=== PATIENT | male | born 1955 | race Caucasian/White ===

== ENCOUNTER → 2016-09-18 08:30 | Day surgery (SDC) | payer OTHER ==
[~2016-09-18 08:30] MED LIST: Buffered Lidocaine 1% SYR 3ML* 3 ML/SYR SYRINGE INTRADERM ONE; Buffered Lidocaine 1% SYR 3ML* 3 ML/SYR SYRINGE ONE; Bupivacaine 0.25% EPI 200,000* 30 ML SDV ONE; Bupivacaine 0.25% SDV* 30 ML ONE; Dexamethasone IV* 4 MG/ML 1 ML (4 MG) IV SLOW PU ONE; Dexamethasone IV* 4 MG/ML 1 ML (4 MG) ONE; EPHEDrine (Pressors)* 50 MG/ML VIAL ONE; Famotidine IV* 10 MG/ML 2 ML (20 mg) IV ONE; Famotidine IV* 10 MG/ML 2 ML (20 mg) ONE; Lidocaine 2% MPF* 2 ML VIAL ONE; Metoprolol Tartrate IV* 1 MG/ML 5 ML VIAL ONE; Midazolam* 1 MG/ML 5 ML VIAL (5 MG) ONE; Ondansetron INJ* 2 MG/ML VIAL ONE; PROCHLORPERAZINE INJ 5 MG/ML 2 ML VIAL IV PRN; Phenylephrine IV* 40 MCG/ML 10 ML SYRINGE ONE; Propofol* 10 MG/ML 20 ML BTL IV PUSH ONE; Succinylcholine* 20 MG/ML 10 ML VIAL ONE; ceFAZolin 2 GM PREMIX (*) 2 GM/50 ML BAG IVPB ONE; fentaNYL* 50 MCG/ML 2 ML VIAL (100 MCG VIAL) IV PRN; fentaNYL* 50 MCG/ML 2 ML VIAL (100 MCG VIAL) ONE; oxyCODONE/Acetamin 5/325 MG* TAB PO PRN
[2016-09-18 16:34] VITALS: BP 122/79
--- NOTE | 2016-09-18 21:45 | OP ---
DATE OF OPERATION: 09/18/16 [facility] DATE OF : 53 SURGEON: Devin Barreto MD PRODUCE CLERK: MARIE Dowell. An pediatric physical therapy assistant was needed for the entirety of the case to help with positioning, retraction, and closure. ANESTHESIOLOGIST: Dr. Mcclure. ANESTHESIA: General. 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 OPERATIVE PROCEDURE: Open left distal clavicle excision. COMPLICATIONS: None. ESTIMATED BLOOD LOSS: Less than 25 cc. SPECIMENS: None. INDICATIONS: Cristofer Nogueira is a 60-year-old male who has a chronic history of an AC separation that has recently begun bothering him with cross body motion as well as lifting. This is all specific to where the AC joint is. He was aware that he was going to get arthritis. X-rays confirmed the diagnosis. He has elected to proceed with open distal clavicle excision. Risks and benefits were discussed at length and include but are not limited to bleeding, infection , damage to nerves, vessels and surrounding structures, wound not healing, persistent pain, need for further surgery and risks of anesthesia; he has elected to proceed. DESCRIPTION OF PROCEDURE: The patient was greeted in the preoperative area by the attending surgeon. Correct extremity was marked and consent was confirmed. The patient was brought back to the operating suite where he was placed in supine position on the operating table. He then underwent general anesthesia and LMA intubation, which she tolerated without difficulty. The left shoulder was prepped and draped in the usual sterile fashion with chlorhexidine scrub and alcohol wipe and final prep with ChloraPrep. After appropriate surgical pause, indicating site, side, procedure, and administration of antibiotics, an incision centered over the end of the clavicle over the AC joint was then made in line with the clavicle. Soft tissues were carefully dissected, which exposed the obvious deformity. The AC joint capsule had been attenuated again due to the previous deformity. Bovie was used to expose the distal end of the clavicle anteriorly and posteriorly and then the soft tissue dissection was then done to allow for Hohmann retractor to be placed. Approximately the last 1 cm of the clavicle was then measured and intraoperatively incised using the sagittal saw. The wound was palpated. There was a small loose body that was present on x-ray in the joint, which was then palpated for and then carefully removed with the rongeur and electrocautery device. Once all loose debris was removed, the shoulder was taken through range of motion with my finger in between the clavicle and the acromion to make sure that there was no pinching or further rubbing at the ends of the bone. At this point, the wound was copiously irrigated. The AC joint and then the fascia was closed with 0 Vicryl in an interrupted fashion, the subcutaneous tissue with 2-0 Vicryl and the skin with 3-0 nylon. The wound was then injected with 30 cc of 0.25% Marcaine. Sterile dressings were applied. He was placed in a regular sling. He was awoken from anesthesia and transferred to PACU in stable condition. POSTOPERATIVE PLAN: He will be discharged with pain medication and antibiotics. He will be allowed to do range of motion as tolerated. He can wean out of the sling as tolerated but he should not be lifting, pushing, pulling for at least 4 weeks. DVT prophylaxis is considered but deferred due to no previous personal or family history. I will see the patient back in 10 to 14 days. [id number]/[facility] #: [id number] REBECCA
== END | disposition home or self-care (01) ==
LOC: OR 08:30
PROVIDERS: ATTEND Orthopaedic Surgery
DX: M19.112 Post-traumatic osteoarthritis, left shoulder (principal); M24.812 Other specific joint derangements of left shoulder, not elsewhere classified; I25.9 Chronic ischemic heart disease, unspecified; J44.9 Chronic obstructive pulmonary disease, unspecified; E11.9 Type 2 diabetes mellitus without complications; E66.9 Obesity, unspecified
CPT/HCPCS: J0330; J0690; J1100; J2250; J2405; J2704; J3010; J3490

== ENCOUNTER 2018-12-04 06:21 | Emergency (ER) | payer OTHER ==
--- OUTSIDE RECORDS SUMMARY | 2018-12-04 06:31 | XMS REPORT | Continuity of Care Document ---
:1955 External Reference #:[id number] Author Name Estrada Malik, OD Address [address] [place] [address] Care Team Providers Name Role Phone Ludivina De Santiago MD Care Team Information Log Hauler Unavailable Ludivina De Santiago MD Primary Care Physician Unavailable Payers Date Identification Numbers Payment Provider Subscriber Policy Number: [id number] [facility] Cristofer Nogueira PayID: [id number] [address] [address] [place] [address] Advance Directives Description No Information Available Problems Date Description Provider Status Onset: 12/13/2016 Open-angle glaucoma - borderline Estrada Malik, OD Active Onset: 06/14/2016 Excess skin of eyelid Estrada Malik, OD Active Onset: 01/13/2016 Combined form of senile cataract Estrada Bolton O.D. Active Onset: 07/17/2015 Type 2 diabetes mellitus Estrada Bolton O.D. Active Onset: 10/31/2014 Retinal drusen Nandini Carlson O.D. Active Onset: 10/31/2014 Open angle with borderline findings Nandini Carlson O.D. 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 Active Onset: 10/31/2014 Presbyopia Nandini Carlson O.D. Active Onset: 10/31/2014 Disorder of eye with type 2 diabetes Nandini Carlson O.D. Active mellitus Family History Date Family Member(s) Observation Comments General Cataract General High BP General Heart Disease General Brother Father Heart Disease Father High BP Mother Diabetes Social History Type Date Description Comments Sex Unknown ETOH Use Occasionally consumes alcohol Tobacco Use Start: Unknown End: Unknown Patient is a former smoker Smoking Status Reviewed: 11/26/18 Patient is a former smoker Allergies, Adverse Reactions, Alerts Date Description Reaction Status Severity Comments 10/31/2014 Tetracycline Active 08/26/2018 Shrimp Active Medications Medication Date Status Form Strength Qnty SIG Indications Ordering Provider Latanoprost Active Solution 0.005% 7.5ml 1 drops Estrada 018 both Malik, OD eyes every night Omeprazole Active Capsules DR Delatorre 015 Nasreen Carlson Aspir-[address] 81mg once Unknown 000 per day by mouth Loratadine Active Tablets 10mg Unknown 000 Losartan Active Tablets 50mg Unknown Potassium 000 Isosorbide Active Tablets ER Unknown Mononitrate ER 000 24HR Metoprolol Active Tablets 25mg Unknown Tartrate 000 Atorvastatin Active Tablets 80mg Unknown Calcium 000 Metformin HCL Active Tablets 1000mg Unknown 000 Auvi-Q Active Solution 0.3mg/0.3M Unknown 000 Auto-Inject L Latanoprost Hx Solution 0.005% 7.5uni 1 drops Estrada 018 - ts both Malik, OD eyes 018 every night Metformin HCL Hx Tablets 500mg Unknown 000 - 015 Immunizations Description No Information Available Vital Signs Date Vital Result Comment 08/26/2018 3:08pm Intraocular Pressure Right Eye 14 mmHg Intraocular Pressure Left Eye 14 mmHg 07/01/2018 3:19pm Intraocular Pressure Right Eye 17 mmHg Intraocular Pressure Left Eye 17 mmHg 12/29/2017 1:38pm Intraocular Pressure Right Eye 17 mmHg Intraocular Pressure Left Eye 17 mmHg 08/28/2017 9:10am Intraocular Pressure Right Eye 15 mmHg Intraocular Pressure Left Eye 15 mmHg 12/13/2016 2:45pm Intraocular Pressure Right Eye 18 mmHg Intraocular Pressure Left Eye 19 mmHg 06/14/2016 8:39am Intraocular Pressure Right Eye 17 mmHg Intraocular Pressure Left Eye 16 mmHg 01/13/2016 10:46am Intraocular Pressure Right Eye 18 mmHg Intraocular Pressure Left Eye 18 mmHg 12/14/2014 11:32am Intraocular Pressure Right Eye 15 mmHg Intraocular Pressure Left Eye 15 mmHg Cornea Thickness Left Eye 646407 m Cornea Thickness Right Eye 312341 m Pachymetry adjusted IOP Right Eye +1 Pachymetry adjusted IOP Left Eye +2 10/31/2014 2:37pm Intraocular Pressure Right Eye 18 mmHg Intraocular Pressure Left Eye 18 mmHg Results Description No Information Available Procedures Date Code Description Status 07/01/2018 19488 Oct, Optic Nerve Completed 07/01/2018 56236 Visual Field Exam Extended, Unilateral Or Bilateral Completed 07/01/2018 29217 Eye Exam Est Intermediate Completed 12/29/2017 96240 Fundus Photography W/Interpretation & Report Completed 12/29/2017 03103 Ophthalmoscopy Subsequent Completed 12/29/2017 02894 Refraction Completed 12/29/2017 58112 Eye Exam Est Comprehensive Completed 08/28/2017 38827 Eye Exam Est Intermediate Completed 08/28/2017 19789 Visual Field Exam Extended, Unilateral Or Bilateral Completed 08/28/2017 66299 Oct, Optic Nerve Completed 12/13/2016 70732 Fundus Photography W/Interpretation & Report Completed 12/13/2016 75094 Ophthalmoscopy Subsequent Completed 12/13/2016 70095 Refraction Completed 12/13/2016 94316 Eye Exam Est Comprehensive Completed 06/14/2016 46406 Visual Field Exam Extended, Unilateral Or Bilateral Completed 06/14/2016 21997 Eye Exam Est Intermediate Completed 05/14/2016 48103 Visual Field Exam Extended, Unilateral Or Bilateral Completed 05/14/2016 89344 Visual Field Exam Extended, Unilateral Or Bilateral Completed 05/14/2016 50485 Oct, Optic Nerve Completed 05/14/2016 46350 Oct, Optic Nerve Completed 01/13/2016 94086 Fundus Photography W/Interpretation & Report Completed 01/13/2016 44869 Eye Exam Est Comprehensive Completed 03/15/2015 74655 Oct Retina Completed 03/15/2015 96146 Visual Field Exam Extended, Unilateral Or Bilateral Completed 03/15/2015 65096 Eye Exam Est Intermediate Completed 12/14/2014 03724 Oct, Optic Nerve Completed 12/14/2014 31556 Visual Field Exam Extended, Unilateral Or Bilateral Completed 12/14/2014 90285 Eye Exam Est Intermediate Completed 12/14/2014 70709 Corneal Pachymetry, Unilateral/Bilateral Completed 10/31/2014 51958 Fundus Photography W/Interpretation & Report Completed 10/31/2014 19743 Ophthalmoscopy Initial Completed 10/31/2014 37616 Refraction Completed 10/31/2014 39164 Eye Exam New Comprehensive Completed Encounters Type Date Location Provider Dx Diagnosis Office Visit 08/26/2018 Main Office Estrada Malik, OD H40.1131 Primary open-angle 3:15p glaucoma, bilateral, mild stage Office Visit 07/17/2015 Main Office Estrada Bolton, E11.9 Type 2 diabetes 10:00a O.D. mellitus without complications Plan of Treatment 11/26/2018 - Estrada Malik, ODH40.1131 Primary open-angle glaucoma, bilateral, mild stageFollow up:3 mos full, sooner PRN
--- OUTSIDE RECORDS SUMMARY | 2018-12-04 06:32 | XMS REPORT | Continuity of Care Document ---
:1955 External Reference #:[id number] Author Name BERNADETTE Laura Address [address] [place] [address] Care Team Providers Name Role Phone Ludivina De Santiago M.D. Care Team Information Maintenance Mechanic Technician Unavailable Ludivina De Santiago M.D. Primary Care Physician Unavailable Payers Date Identification Numbers Payment Provider Subscriber Effective: 2018 Policy Number: [id number] [facility] Cristofer Nogueira PayID: [id number] [address] [address] [place] [address] Advance Directives Description No Information Available Problems Date Description Provider Status Onset: 10/16/2018 Allergic rhinitis Milla Lemos M.D. Active Onset: 10/16/2018 Ingestion dermatitis due to food Milla Lemos M.D. Active Family History Date Family Member(s) Observation Comments General Diabetes General Heart Disease General Hypertension Mother Diabetes First Brother Diabetes First Brother Heart Disease has 8 brothers all have heart disease. First Brother Hypertension all 8 brothers have hypertension. 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 Home Environment Has central air Home Environment Stairs are not present Home Environment Cotton Comforter Home Environment Elevator is present Home Environment Mattress is 6 years old Home Environment Mattress is not encased in an allergy proof case Home Environment Pillows are not encased in an allergy proof case Home Environment Pillows are rubber (foam) Home Environment Does not use a dehumidifier Home Environment There are no draperies in the home Home Environment The home is candido Home Environment The floors are carpeted Home Environment Uses forced air heating Home Environment Uses natural gas heating Home Environment [place] Home Environment Water Source: [facility] Smoke-Free Home is smoke-free Pets None Occupation Retired ETOH Use Occasionally consumes alcohol Tobacco Use Start: Unknown End: Patient is a former smoker Unknown Recreational Drug Use Denies Drug Use Allergies, Adverse Reactions, Alerts Date Description Reaction Status Severity Comments 10/16/2018 Tetracycline Active Medications Medication Date Status Form Strength Qnty SIG Indications Ordering Provider Auvi-Q 10/16/ Active Solution 0.3mg/0.3M 2units use as Milla 2018 Auto-Injec L directed. bj Lemos M.D. Multi Vitamin / Active Tablets once a day Unknown Daily 0000 Aspirin 81 Low / Active Chewtabs 81mg 1 per day Unknown Dose 0000 Loratadine / Active Capsules 10mg take one Unknown 0000 10 mg tab daily Losartan / Active Tablets 50mg Unknown Potassium 0000 Dexilant / Active Capsules 60mg Unknown 0000 DR Isosorbide / Active Tablets ER 120mg Unknown Mononitrate ER 0000 24HR Metoprolol / Active Tablets 25mg Unknown Tartrate 0000 Atorvastatin / Active Tablets 80mg Unknown Calcium 0000 Metformin HCL / Active Tablets 1000mg Unknown 0000 Fluoxetine HCL / Active Capsules 10mg Unknown 0000 Epinephrine / Active Solution 0.3mg/0.3M use as Unknown 0000 Auto-Injec L directed - t mylan generic only [facility]# [id number] -02 Immunizations CPT Code Status Date Vaccine Lot # [id number] Given Unknown Influenza Vaccine Vital Signs Date Vital Result Comment 11/06/2018 1:43pm Height 72 inches 6'0" Weight 254.00 lb Weight 115.214 kg Respiratory Rate 20 /min Heart Rate 55 /min O2 % BldC Oximetry 97 % BP Systolic 102 mmHg BP Diastolic 55 mmHg BMI (Body Mass Index) 34.4 kg/m2 10/16/2018 8:43am Height 72 inches 6'0" Weight 256.00 lb Weight 116.122 kg Respiratory Rate 21 /min Heart Rate 71 /min O2 % BldC Oximetry 96 % BP Systolic 108 mmHg BP Diastolic 61 mmHg BMI (Body Mass Index) 34.7 kg/m2 Results Test Date Facility Test Result H/L Range Note Allergy Shrimp Ige 10/16/2018 [facility] Shrimp Allergen 0.55 kU /L [address] [place] [address] [phone] Laboratory test 10/16/2018 [facility] Rast Lobster 0.60 kU/L 2 [place] [address] [phone] Allergy Crab F23 10/16/2018 [facility] Crab Allergen 0.49 kU/L 3 [place] [address] [phone] Laboratory test 10/16/2018 [facility] Rast Scallops <0.35 kU/L 4 [place] [address] [phone] Rast Blue Mussel <0.35 kU/L 5 Rast Clam <0.35 kU/L 6 Rast Oyster <0.35 kU/L 7 Dermatophagoides farinae IgE 0.36 kU/L 8 Dermatophagoides pteronyssinus <0.35 kU/L 9 Alternaria tenuis IgE Allergen <0.35 kU/L 10 Aspergillus Fumigatus IgE <0.35 kU/L 11 1 Class 1 (Equivocal 0.35-0.69) Test Performed by: [place] [address] 2 Class 1 (Equivocal 0.35-0.69) Test Performed by: [place] [address] 3 Class 1 (Equivocal 0.35-0.69) Test Performed by: [place] [address] 4 Class 0 (Negative <0.35) Test Performed by: [place] [address] 5 Class 0 (Negative <0.35) Test Performed by: [place] [address] 6 Class 0 (Negative <0.35) Test Performed by: [place] [address] 7 Class 0 (Negative <0.35) Test Performed by: [address] [place], [place] [address] 8 Class 1 (Equivocal 0.35-0.69) Test Performed by: [place] [address] 9 Class 0 (Negative <0.35) Test Performed by: [place] [address] 10 Class 0 (Negative <0.35) Test Performed by: [place] [address] 11 Class 0 (Negative <0.35) Test Performed by: [place] [address] Procedures Description No Information Available Encounters Type Date Location Provider Dx Diagnosis Office Visit 10/16/2018 [place] Milla Lemos, L27.2 Dermatitis due to 9:00a M.D. ingested food J30.9 Allergic rhinitis, unspecified Plan of Treatment Future Appointment(s):11/12/2018 2:30 pm - Allergy Testing at [facility]11/12/2018 3:00 pm - JOHANNA Laura-C at [facility]0311/06/2018 - JOHANNA Laura- CL27.2 Dermatitis due to ingested foodJ30.9 Allergic rhinitis, norolfotpjaA50.013 Allergy to seafoodRecommendations:Refrain from wearing perfumes/scented colognes while visiting our office. Continue all medications as prescribed NEEDS TO RESCHEDULED Continue strict avoidance of shrimp, lobster and crab . If accidental ingestion occurs, refer to Emergency Action Plan for treatment. Reviewed EAP, patient is comfortable and understands current plan. Taught and reviewed about the use of an Epi Pen, and patient demonstrated and verbalized understanding. EMERGENCY ACTION PLAN: For systemic reactions: -Administer: EpiPen Jr 0.15 mg/EpiPen 0.3 mg IM to thigh muscle Auvi-Q 0.15 mg/AuviQ Q 0.3 mg IM to thigh muscle -May repeat the dose in 15-20 minutes if there is incomplete response to the first dose, or if symptoms get worse over time. -Call 911 for safe transport to an emergency facility. For mild reactions or suspected ingestion without symptoms: - Administer: Liquid Benadryl 12.5 mg/5 ml, tsp immediately and every 4-6 hours as needed. Do not give Benadryl if there is any difficulty swallowing, breathing or talking. Administer EpiPen instead.
--- OUTSIDE RECORDS SUMMARY | 2018-12-04 06:32 | XMS REPORT | Continuity of Care Document ---
:1955 External Reference #:[id number] Author Name BERNADETTE Laura Address [address] [place] [address] Care Team Providers Name Role Phone Ludivina De Santiago M.D. Care Team Information Ward Secretary Unavailable Ludivina De Santiago M.D. 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 Home Environment Has central air Home Environment [...] in the city Home Environment Water Source: [facility] Smoke-Free Home is smoke-free Pets None Occupation Retired ETOH Use Occasionally consumes alcohol Tobacco Use Start: Unknown End: Patient is a former smoker Unknown Recreational Drug Use Denies Drug Use Allergies, Adverse Reactions, Alerts Date Description Reaction Status Severity Comments 10/16/2018 Tetracycline Active Medications Medication Date Status Form Strength Qnty SIG Indications Ordering Provider Auvi-Q 10/16/ Active Solution 0.3mg/0.3M 2units use as [facility] 2018 Auto-Injec L directed. bj Lemos M.D. [...] L directed - t mylan generic only [facility]# [id number] -02 Immunizations CPT Code Status Date Vaccine Lot # [id number] Given Unknown Influenza Vaccine Vital Signs Date Vital Result Comment 11/12/2018 1:12pm Height 72 inches 6'0" Weight 256.00 lb Weight 116.122 kg Respiratory Rate 18 /min Heart Rate 72 /min O2 % BldC Oximetry 95 % BP Systolic 114 mmHg BP Diastolic 73 mmHg BMI (Body Mass Index) 34.7 kg/m2 11/06/2018 1:43pm Height 72 inches 6'0" Weight [...] H/L Range Note Allergy Shrimp Ige 10/16/2018 [facility] Shrimp Allergen 0.55 kU /L 1 [facility] [place] [address] [phone] Laboratory test 10/16/2018 [facility] Rast Lobster 0.60 kU/L [address] [place] [address] [phone] Allergy Crab F23 10/16/2018 [facility] Crab Allergen 0.49 kU/L 3 [place] [address] [phone] Laboratory test 10/16/2018 [facility] Rast Scallops <0.35 kU/L [address] [place] [address] [phone] Rast Blue Mussel <0.35 kU/L 5 Rast Clam <0.35 kU/L 6 Rast Oyster <0.35 kU/L 7 Dermatophagoides farinae IgE 0.36 kU/L 8 Dermatophagoides pteronyssinus <0.35 kU/L 9 Alternaria tenuis IgE Allergen <0.35 kU/L 10 Aspergillus Fumigatus IgE <0.35 kU/L 11 1 Class 1 (Equivocal 0.35-0.69) Test Performed by: [facility] [place] [address] 2 Class 1 (Equivocal 0.35-0.69) Test Performed by: [facility] [place] [address] 3 Class 1 (Equivocal 0.35-0.69) Test Performed by: [facility] [place] [address] 4 Class 0 (Negative <0.35) Test Performed by: [place] [address] 5 Class 0 (Negative <0.35) Test Performed by: [place] [address] 6 Class 0 (Negative <0.35) Test Performed by: [place] [address] 7 Class 0 (Negative <0.35) Test Performed by: [place] [address] 8 Class 1 (Equivocal 0.35-0.69) Test Performed by: [place] [address] 9 Class 0 (Negative <0.35) Test Performed by: [place] [address] 10 Class 0 (Negative <0.35) Test Performed by: [place] [address] 11 Class 0 (Negative <0.35) Test Performed by: [place] [address] Procedures Date Code Description Status 11/12/2018 93852 Skin Test Scratch # Of Units ____ Completed Encounters Type Date Location Provider Dx Diagnosis Office Visit 11/12/2018 Rubén Holder, L27.2 Dermatitis due to 3:00p MANAGER WOUND-C ingested food J30.9 Allergic rhinitis, unspecified Z91.013 Allergy to seafood Office Visit 10/16/2018 9:00a Rubén Lemos, L27.2 Dermatitis due to M.D. ingested food J30.9 Allergic rhinitis, unspecified Plan of Treatment 11/12/2018 - JOHANNA Laura-CL27.2 Dermatitis due to ingested foodJ30.9 Allergic rhinitis, jqfpsrvuuqbL56.013 Allergy to seafoodRecommendations:Refrain from wearing perfumes/scented colognes while visiting our office. Continue all medications as prescribed. He is able to eat clams, oysters and scallops. Continue strict avoidance of shrimp, lobster and [...] in 15-20 minutes if there is incomplete responseto the first dose, or if symptoms get worse over time. -Call 911 for safe transport to an emergency facility. For mild reactions or suspected ingestion without symptoms : -Administer: Liquid Benadryl 12.5 mg/5 ml, tsp immediately and every 4-6 hours as needed. Do not give Benadryl if there is any difficulty swallowing, breathing or talking. Administer EpiPen instead.
[2018-12-04] MEDS ORDERED: NS 0.9% 1000 ML** 1,000 ML IV ONE (06:47)
[2018-12-04] MEDS ORDERED: Ondansetron INJ* 2 MG/ML VIAL IV ONE (06:47)
--- NOTE | 2018-12-04 06:48 | ED ---
Abdominal Pain/Male - HPI Summary HPI Summary: Pt. is a 63 y.o male who presents to the ER for numerous complaints that started last night. Pt. resides at home with his . Pt. states he developed cough, sinus pressure, SOB, as well as upper abd. pain that started yesterday. In the ER pt. denies CP or SOB. He notes nausea and dry heaves. Denies diarrhea , urinary sxs, fever/chills. Past hx of CAD, ?COPD, HTN, HLD, GERD, chronic sinusitis. Sxs are moderate in severity. No current modifying factors. - History of Current Complaint Chief Complaint: EDGeneral Stated Complaint: "SOB" PER EMS Time Seen by Provider: 12/04/18 06:31 Hx Obtained From: Patient Pain Intensity: 4 - Allergies/Home Medications Allergies/Adverse Reactions: Allergies Allergy/AdvReac Type Severity Reaction Status Date / Time celecoxib [From Celebrex] Allergy Difficulty Verified 12/04/18 06:59 Breathing niacin Allergy Difficulty Verified 12/04/18 06:59 [From Niaspan Breathing/Wheezing Extended-Release] shellfish derived Allergy Anaphylatic Verified 12/04/18 06:58 Shock Tetracyclines Allergy Unknown Verified 12/04/18 07:00 Reaction Details PMH/Surg Hx/FS Hx/Imm Hx Previously Healthy: Yes Endocrine/Hematology History: Reports: Hx Diabetes Cardiovascular History: Reports: Hx Coronary Artery Disease, Hx Hypercholesterolemia, Hx Hypertension, Other Cardiovascular Problems/Disorders - cardiac stents x4 05,07 Respiratory History: Reports: Hx Chronic Obstructive Pulmonary Disease (COPD), Hx Seasonal Allergies, Hx Sleep Apnea GI History: Reports: Hx Gastroesophageal Reflux Disease Musculoskeletal History: Reports: Hx Arthritis, Hx Orthopedic Injury - left shoulder injury, Other Musculoskeletal History - Chronic Neck Pain Sensory History: Denies: Hx Contacts or Glasses, Hx Hearing Aid Opthamlomology History: Denies: Hx Contacts or Glasses Psychiatric History: Reports: Hx Depression - Surgical History Surgery Procedure, Year, and Place: 3 Cardiac Stents 2004. 1 Cardiac Stent 2006. Septoplasty Turbinate Reduction. Hyoid Suspension. Appendectomy Hx Anesthesia Reactions: No Infectious Disease History: No Infectious Disease History: Denies: Traveled Outside the [place] in Last 30 Days - Family History Known Family History: Positive: Non-Contributory - Social History Occupation: Retired Lives: With Family Alcohol Use: Daily Substance Use Type: Reports: None Smoking Status (MU): Former Smoker Review of Systems Constitutional: Negative Negative: Fever, Chills Eyes: Negative Positive: Other - sinus congestion Cardiovascular: Negative Negative: Palpitations, Chest Pain Positive: Shortness Of Breath, Cough Positive: Abdominal Pain, Nausea. Negative: Vomiting, Diarrhea Genitourinary: Negative Negative: flank pain, hematuria Musculoskeletal: Negative Skin: Negative Neurological: Negative All Other Systems Reviewed And Are Negative: Yes Physical Exam Triage Information Reviewed: Yes Vital Signs On Initial Exam: Initial Vitals Temp Pulse Resp BP Pulse Ox 98.4 F 88 16 141/79 93 12/04/18 06:25 12/04/18 06:25 12/04/18 06:25 12/04/18 06:25 12/04/18 06:25 Vital Signs Reviewed: Yes Appearance: Positive: Well-Appearing - Pt. sitting up in bed in NAD. Breathing easily on RA. present. Skin: Positive: Warm, Dry Head/Face: Positive: Normal Head/Face Inspection Eyes: Positive: Normal, EOMI Neck: Positive: Supple, Nontender. Negative: Nuchal Rigidity Respiratory/Lung Sounds: Positive: Clear to Auscultation, Breath Sounds Present. Negative: Rales, Rhonchi, Wheezes Cardiovascular: Positive: Normal, RRR Abdomen Description: Positive: Other: - Obese, distended. RUQ pain with positive [place] sign. Musculoskeletal: Positive: Normal, Strength/ROM Intact. Negative: Edema Left, Edema Right Neurological: Positive: Normal, CN Intact II-III Psychiatric: Positive: Affect/Mood Appropriate Diagnostics - Vital Signs Vital Signs Temp Pulse Resp BP Pulse Ox 12/04/18 06:28 81 20 141/79 94 12/04/18 06:27 83 19 96 12/04/18 06:25 98.4 F 88 16 141/79 93 - Laboratory Result Diagrams: 12/04/18 07:04 12/04/18 07:04 Lab Statement: Any lab studies that have been ordered have been reviewed, and results considered in the medical decision making process. Abdominal Pain Male Course/Dx - Course Course Of Treatment: Pt. presenting with complaints of SOB that has resolved, RUQ pain, and sinus congestion. He is afebrile and well appearing. O2 saturation in low 90's. Workup ordered. Labs are unremarkable. CXR negative for acute findings. Abd. xray shows gas without obstruction. GB U/S shows fatty liver without acute findings. Readings per radiology. On re-exam pt. still c/o pain. Abd. was re-examined and pain is now markedly tender to RLQ with guarding. Will obtain CT to r/o further etiology. CT scan is negative for significant findings per radiology. Ct does show marked constipation. Suspect may be etiology of pain. Results discussed. Advised to increase fluids and fiber in diet. Can use OTC stool softeners. Close f.u with PCP and return to ER if sxs change or worsen. ECG done at 0630 shows a sinus rhythm of 81bpm, left axis deviation, no ST elevation or depression. - Diagnoses Differential Diagnosis/HQI/PQRI: ACS, AMI, Appendicitis, Bowel Obstruction, Constipation, Diverticulitis, Gall Bladder Disease, Hepatitis, Pancreatitis, Urinary Tract Infection Provider Diagnoses: Abdominal pain, Constipation Discharge - Sign-Out/Discharge Documenting (check all that apply): Patient Departure Patient Received Moderate/Deep Sedation with Procedure: No - Discharge Plan Condition: Good Disposition: HOME Patient Education Materials: Abdominal Pain (ED) Referrals: Ludivina De Santiago MD [Primary Care Provider] - Additional Instructions: Schedule a close follow up appointment with your PCP Return to ER if symptoms change or worsen - Billing Disposition and Condition Condition: GOOD Disposition: Home
[2018-12-04 07:22] LABS: ABS Basophils 0 10^3/ul (0-0.2); ABS Eosinophils 0.2 10^3/ul (0-0.6); ABS Lymphocytes 1.1 10^3/ul (1.0-4.8); ABS Monocytes 0.4 10^3/ul (0-0.8); ABS Neutrophils 3.8 10^3/ul (1.5-7.7); ABS Nucleated RBC 0 10^3/ul; Hematocrit 41 % (36-46); Hemoglobin 14.1 g/dL (14.0-18.0); Lymphocyte % 20.3 %; Mean Corpuscular HGB Conc 34 g/dL (31-36); Mean Corpuscular Hemoglobin 32 pg (27-31); Mean Corpuscular Volume 94 fL (80-94); Mean Platelet Volume 8.9 fL (7.4-10.4); Nucleated Red Blood Cells % 0.1; Platelet Count 159 10^3/uL (150-450); Red Blood Count 4.41 10^6 /uL (4.18-5.48); Red Cell Distribution Width 13 % (10.5-15); White Blood Count 5.5 10^3/uL (3.5-10.8)
[2018-12-04 07:34] LABS: ALT 24 U/L (7-52); AST 28 U/L (13-39); Albumin 4.4 g/dL (3.2-5.2); Albumin/Globulin Ratio 1.8 (1-3); Alkaline Phosphatase 44 U/L (34-104); Anion Gap 8 mmol/L (2-11); BUN/Creatinine Ratio 11.7 (8-20); Blood Urea Nitrogen 11 mg/dL (6-24); C Reactive Protein < 1.00 mg/L (<8.01); CO2 Carbon Dioxide 25 mmol/L (22-32); Calcium 9.6 mg/dL (8.6-10.3); Chloride 102 mmol/L (101-111); EGFR African American 97.8 (>60); EGFR Non-African American 80.8 (>60); Globulin 2.4 g/dL (2-4); Glucose 100 mg/dL (70-100); Magnesium 1.5 mg/dL (1.9-2.7); Potassium 4.8 mmol/L (3.5-5.0); Sodium 135 mmol/L (135-145); Total Protein 6.8 g/dL (6.4-8.9)
[2018-12-04 07:34] LABS: Urine Appearance Clear; Urine Bilirubin Negative (Negative); Urine Blood Negative (Negative); Urine Color Straw; Urine Glucose Negative (Negative); Urine Ketones Negative (Negative); Urine Nitrite Negative (Negative); Urine Protein Negative (Negative); Urine Specific Gravity 1.006 (1.010-1.030); Urine Urobilinogen Negative (Negative)
[2018-12-04] MEDS ORDERED: Magnesium Oxide TAB* 400 MG PO ONE (08:34)
[2018-12-04 10:57] VITALS: BP 138/82
== END 2018-12-04 10:55 | disposition home or self-care (01) ==
LOC: ED 06:21
DX: R10.11 Right upper quadrant pain (principal); K59.00 Constipation, unspecified; E11.9 Type 2 diabetes mellitus without complications; I25.10 Atherosclerotic heart disease of native coronary artery without angina pectoris; E78.00 Pure hypercholesterolemia, unspecified; I10 Essential (primary) hypertension; J44.9 Chronic obstructive pulmonary disease, unspecified; K21.9 Gastro-esophageal reflux disease without esophagitis; Z87.891 Personal history of nicotine dependence; J32.9 Chronic sinusitis, unspecified; K76.0 Fatty (change of) liver, not elsewhere classified
CPT/HCPCS: 36415; 71045; 74018; 74176; 76705; 80053; 81003; 83605; 83690; 83735; 84484; 85025; 85379; 86140; 93005; 96361; 96374; 96375; 99282; J2405

== ENCOUNTER 2019-04-05 10:33 | Emergency (ER) | payer OTHER ==
[2019-04-05] MEDS ORDERED: predniSONE TAB* 10 MG PO ONE (11:36)
[2019-04-05] MEDS ORDERED: Albuterol 2.5 MG/3 ML NEB.SOL* (0.083%) INH ONE (11:36)
[2019-04-05] MEDS ORDERED: Lidocaine 2% VISCOUS* 15 ML UDC PO ONE (11:37)
[2019-04-05] MEDS ORDERED: Ketorolac INJ* 30 MG/ML 1 ML VIAL IV PUSH ONE (11:37)
--- NOTE | 2019-04-05 11:43 | ED ---
Respiratory - HPI Summary HPI Summary: The patient is a 63 y/o M presenting to [facility] accompanied by with a chief complaint of respiratory symptoms for the last three days. He reports that when the symptoms began, he started with a nonproductive cough, sore throat, rhinorrhea, and myalgia with body aches and joint pains. While he hasnt had any measured fevers, he notes he has been more diaphoretic at night than usual. He also has been experiencing CP secondary to coughing, which also aggravates the sore throat. He notes that he has had cramping in his legs for the last few months intermittently as well. At its worse, the pain is rated 9/10 in severity , specially with the throat pain. He denies any chills, erythema of eyes, SOB, abdominal pain, N/V, dysuria, hematuria, edema, rash, or dizziness. He uses a CPAP at home. No hx of asthma. PMHx: DM (Metformin), CAD, HLD, HTN, 4 cardiac stents, COPD. Former smoker, daily EtOH, no substance use. - History of Current Complaint Chief Complaint: EDGeneral Stated Complaint: COUGH/BODY ACHES PER PT Time Seen by Provider: 04/05/19 11:27 Hx Obtained From: Patient Onset/Duration: Gradual Onset, Lasting Days - three, Still Present Timing: Constant Initial Severity: Mild Current Severity: Moderate Pain Intensity: 9 Character: Cough (Nonproductive) Sputum Amount: None Aggravating Factor(s): Other - coughing aggravates chest pain Alleviating Factor(s): Nothing Associated Signs and Symptoms: Chest Pain with Cough, Diaphoresis - Allergy/Home Medications Allergies/Adverse Reactions: Allergies Allergy/AdvReac Type Severity Reaction Status Date / Time celecoxib [From Celebrex] Allergy Difficulty Verified 04/05/19 10:38 Breathing niacin Allergy Difficulty Verified 04/05/19 10:38 [From Niaspan Breathing/Wheezing Extended-Release] shellfish derived Allergy Anaphylatic Verified 04/05/19 10:38 Shock Tetracyclines Allergy Unknown Verified 04/05/19 10:38 Reaction Details Home Medications: Home Medications Atorvastatin* [Lipitor 80 MG*] 80 mg PO QPM 04/05/19 [History Confirmed 04/05/19 ] Loratadine 10 mg PO DAILY 04/05/19 [History Confirmed 04/05/19] Losartan Potassium [Cozaar] 50 mg PO DAILY 04/05/19 [History Confirmed 04/05/19] Metoprolol Tartrate TAB* [Lopressor TAB*] 12.5 mg PO BID 04/05/19 [History Confirmed 04/05/19] Naproxen Sodium [Aleve] 220 mg PO BID PRN 04/05/19 [History Confirmed 04/05/19] metFORMIN* [Glucophage 500 MG TAB *] 500 mg PO DAILY 04/05/19 [History Confirmed 04/05/19] PMH/Surg Hx/FS Hx/Imm Hx Endocrine/Hematology History: Reports: Hx Diabetes Cardiovascular History: Reports: Hx Coronary Artery Disease, Hx Hypercholesterolemia, Hx Hypertension, Other Cardiovascular Problems/Disorders - cardiac stents x4 , Respiratory History: Reports: Hx Chronic Obstructive Pulmonary Disease (COPD), Hx Sleep Apnea GI History: Reports: Hx Gastroesophageal Reflux Disease Musculoskeletal History: Reports: Hx Arthritis, Hx Orthopedic Injury - left shoulder injury, Other Musculoskeletal History - Chronic Neck Pain Sensory History: Denies: Hx Contacts or Glasses, Hx Hearing Aid Opthamlomology History: Denies: Hx Contacts or Glasses Psychiatric History: Reports: Hx Depression - Surgical History Surgical History: Yes Surgery Procedure, Year, and Place: 3 Cardiac Stents 2004. 1 Cardiac Stent 2006. Septoplasty Turbinate Reduction. Hyoid Suspension. Appendectomy Hx Anesthesia Reactions: No Infectious Disease History: No Infectious Disease History: Denies: Traveled Outside the [place] in Last 30 Days - Family History Known Family History: Positive: Hypertension, Diabetes - Social History Alcohol Use: Daily Hx Substance Use: No Substance Use Type: Reports: None Hx Tobacco Use: Yes Smoking Status (MU): Former Smoker Review of Systems Positive: Skin Diaphoresis. Negative: Fever, Chills Negative: Erythema Positive: Sore Throat, Nasal Discharge Positive: Chest Pain - secondary to cough Positive: Cough - nonproductive. Negative: Shortness Of Breath Negative: Abdominal Pain, Vomiting, Nausea Negative: dysuria, hematuria Positive: Myalgia - joint pain, body aches, cramping in BLE, Edema Negative: Rash Neurological: Other - NEGATIVE: dizziness All Other Systems Reviewed And Are Negative: Yes Physical Exam - Summary Physical Exam Summary: Constitutional: Well-developed, Well-nourished, Alert. (-) Distressed Skin: Warm, Dry HENT: Normocephalic; Atraumatic; Pharynx is normal appearing Eyes: Conjunctiva normal Neck: Musculoskeletal ROM normal neck. (-) JVD, (-) Stridor, (-) Tracheal deviation Cardio: Rhythm regular, rate normal, Heart sounds normal; Intact distal pulses; The pedal pulses are 2+ and symmetric. Radial pulses are 2+ and symmetric. (-) Murmur Pulmonary/Chest wall: Incessantly coughing during the exam. Effort normal. (-) Respiratory distress, (-) Wheezes, (-) Rales Abd: Soft, (-) tenderness, (-) Distension, (-) Guarding, (-) Rebound Musculoskeletal: (-) Edema Lymph: (-) Cervical adenopathy Neuro: Alert, Oriented x3 Psych: Mood and affect Normal Triage Information Reviewed: Yes Vital Signs On Initial Exam: Initial Vitals Temp Pulse Resp BP Pulse Ox 97.5 F 75 18 131/80 94 04/05/19 10:35 04/05/19 10:35 04/05/19 10:35 04/05/19 10:35 04/05/19 10:35 Vital Signs Reviewed: Yes Diagnostics - Vital Signs Vital Signs Temp Pulse Resp BP Pulse Ox 04/05/19 11:23 78 120/80 94 04/05/19 11:22 74 95 04/05/19 10:35 97.5 F 75 18 131/80 94 - Laboratory Result Diagrams: 04/05/19 11:50 04/05/19 11:50 Lab Statement: Any lab studies that have been ordered have been reviewed, and results considered in the medical decision making process. - Radiology CXR Radiology Interpretation Completed By: Radiologist Summary of Radiographic Findings: Impression: No evidence for acute disease. ED physician has reviewed this report. - EKG 1158 Cardiac Rate: NL - 69 bpm EKG Rhythm: Sinus Rhythm Summary of EKG Findings: NSR at 69 bpm. No STEMI. Re-Evaluation - Re-Evaluation First Eval Re-Evaluation Time: 13:15 Comment: We discussed results and discharge plan. Disposition - Course Course Of Treatment: Patient is a 63 y/o M accompanied by with cc of respiratory symptoms including nonproductive cough, sore throat, rhinorrhea, and myalgia with body aches and joint pains starting three days ago, and leg cramping intermittently over the past few months. Additionally c/o diaphoresis and CP with cough. Denies chills, SOB. Hx of cardiac stents, COPD. Former smoker. Upon physical exam, the patient is incessantly coughing and has a normal appearing pharynx. Blood work reveals RBCs of 4.15, hgb of 13.6, Hct of 39, MCH of 33, plt count of 135, abs lymphs of 0.7, glucose of 112, and magnesium of 1.7. EKG at 1158 reveals NSR at 69 bpm without ischemic changes. Chest x-ray impression is negative for acute disease. In the ED course, the patient was administered GI cocktail for throat pain, Toradol, Prednisone, and Albuterol. He is discharged with dx of sore throat and URI with rx for Albuterol inhaler, Codeine/Guaifenesin, Doxycycline, Lidocaine, and Prednisone. He will follow up with PCP in 2-3 days. Patient agrees with this plan. - Diagnoses Provider Diagnoses: URI (upper respiratory infection), Sore throat Discharge ED - Sign-Out/Discharge Documenting (check all that apply): Patient Departure - Patient will be discharged home. Patient Received Moderate/Deep Sedation with Procedure: No - Discharge Plan Condition: Stable Disposition: HOME Prescriptions: Albuterol HFA INHALER* [Ventolin HFA Inhaler*] 2 puff INH Q4H PRN #1 mdi PRN Reason: Cough Codeine Phosphate/Guaifenesin [Codeine-Guaifen 10-100 mg/5 ml] 5 ml PO TID PRN # 60 ml MDD 15 PRN Reason: Pain - Severe DOXYcycline CAP(*) [DOXYcycline 100MG CAP(*)] 100 mg PO BID #14 cap Lidocaine 2% VISCOUS* [Xylocaine 2% Viscous*] 10 ml SWISH SPIT Q4H PRN #1 btl PRN Reason: Sore Throat predniSONE TAB* [Deltasone 20 MG TAB*] 20 mg PO DAILY #5 tab Patient Education Materials: Upper Respiratory Infection (DC) Referrals: Ludivina De Santiago MD [Primary Care Provider] - 2 Days Additional Instructions: Please take medication as prescribed. Follow up with your primary care provider in 2-3 days. RETURN TO THE EMERGENCY DEPARTMENT FOR ANY NEW OR WORSENING SYMPTOMS. - Billing Disposition and Condition Condition: STABLE Disposition: Home - Attestation Statements Document Initiated by Scribe: Yes Documenting Scribe: Anayeli Arias Provider For Whom Samanthaibjeremías is Documenting (Include Credential): Dr. Clinton Low MD Scribe Attestation: I, samantha Dossibed for Dr. Clinton Low MD on 04/20/19 at 1419. Scribe Documentation Reviewed: Yes Provider Attestation: The documentation as recorded by the Anayeli capellan accurately reflects the service I personally performed and the decisions made by me, Dr. Clinton Low MD Status of Scribe Document: Viewed
[2019-04-05 12:02] LABS: ABS Basophils 0.1 10^3/ul (0-0.2); ABS Eosinophils 0.3 10^3/ul (0-0.6); ABS Lymphocytes 0.7 10^3/ul (1.0-4.8); ABS Monocytes 0.6 10^3/ul (0-0.8); ABS Neutrophils 3.9 10^3/ul (1.5-7.7); Eosinophil % 4.5 %; Hematocrit 39 % (42-52); Hemoglobin 13.6 g/dL (14.0-18.0); Lymphocyte % 12.9 %; Mean Corpuscular HGB Conc 35 g/dL (31-36); Mean Corpuscular Hemoglobin 33 pg (27-31); Mean Corpuscular Volume 94 fL (80-94); Mean Platelet Volume 8.6 fL (7.4-10.4); Platelet Count 135 10^3/uL (150-450); Red Blood Count 4.15 10^6 /uL (4.18-5.48); Red Cell Distribution Width 13 % (10-15); White Blood Count 5.6 10^3/uL (3.5-10.8)
[2019-04-05 12:21] LABS: Albumin 4.5 g/dL (3.2-5.2); Albumin/Globulin Ratio 1.8 (1-3); Calcium 9.4 mg/dL (8.6-10.3); EGFR Non-African American 75.2 (>60); Globulin 2.5 g/dL (2-4); Magnesium 1.7 mg/dL (1.9-2.7); Potassium 4.9 mmol/L (3.5-5.0); Total Bilirubin 0.6 mg/dL (0.2-1.0)
[2019-04-05 12:56] LABS: TSH (Thyroid Stimulating Horm) 1.92 mcIU/mL (0.34-5.60)
[2019-04-05 13:03] VITALS: BP 103/64
== END 2019-04-05 13:20 | disposition home or self-care (01) ==
LOC: ED 10:33
DX: J06.9 Acute upper respiratory infection, unspecified (principal); J02.9 Acute pharyngitis, unspecified; F17.200 Nicotine dependence, unspecified, uncomplicated; E11.9 Type 2 diabetes mellitus without complications; Z79.84 Long term (current) use of oral hypoglycemic drugs; I25.10 Atherosclerotic heart disease of native coronary artery without angina pectoris; E78.00 Pure hypercholesterolemia, unspecified; I10 Essential (primary) hypertension; J44.9 Chronic obstructive pulmonary disease, unspecified; K21.9 Gastro-esophageal reflux disease without esophagitis
CPT/HCPCS: 36415; 71045; 80053; 83605; 83735; 84443; 84484; 85025; 93005; 96374; 99283; J1885; J7512

== ENCOUNTER 2019-07-08 10:38 | Emergency (ER) | payer OTHER ==
[2019-07-08] MEDS ORDERED: Ketorolac *IM* INJ* 60 MG/2 ML VIAL IM ONE (10:51)
--- NOTE | 2019-07-08 10:59 | ED ---
Lower Extremity - HPI Summary HPI Summary: This patient is a 63-year-old male with history of hypertension presenting to the ED with severe right knee pain. Sxs have been severe x 3 weeks. He denies any injury. He denies any difficulty with range of motion. Denies redness, bruising, swelling, weakness. He states symptoms are worse at night and when lying onto the right side. He is endorsing a dull ache and pain without radiation of pain into the upper or lower extremity otherwise. He states he was told to start physical therapy for this today through his doctor, Dr. De Santiago , PCP, however due to the amount of pain, he was unable to go. He has not been taking anything at home for relief of the symptoms. - History of Current Complaint Chief Complaint: EDExtremityLower Stated Complaint: RIGHT LEG PAIN Time Seen by Provider: 07/08/19 10:48 Hx Obtained From: Patient Mechanism Of Injury: Unknown Onset of Pain: Days Severity Initially: Moderate Severity Currently: Moderate Pain Intensity: 8 Pain Scale Used: 0-10 Numeric Timing: Constant Location: Is Discrete @ - right knee Character Of Pain: Aching, Throbbing Associated Signs And Symptoms: Negative: Swelling, Redness, Bruising - Risk Factors Gout Risk Factors: Negative DVT Risk Factors: Negative Septic Arthritis Risk Factor: Negative - Allergies/Home Medications Allergies/Adverse Reactions: Allergies Allergy/AdvReac Type Severity Reaction Status Date / Time celecoxib [From Celebrex] Allergy Difficulty Verified 07/08/19 10:44 Breathing niacin Allergy Difficulty Verified 07/08/19 10:44 [From Niaspan Breathing/Wheezing Extended-Release] shellfish derived Allergy Anaphylatic Verified 07/08/19 10:44 Shock Tetracyclines Allergy Unknown Verified 07/08/19 10:44 Reaction Details PMH/Surg Hx/FS Hx/Imm Hx Previously Healthy: Yes Endocrine/Hematology History: Reports: Hx Diabetes Cardiovascular History: Reports: Hx Coronary Artery Disease, Hx Hypercholesterolemia, Hx Hypertension, Other Cardiovascular Problems/Disorders - cardiac stents x4 , Respiratory History: Reports: Hx Chronic Obstructive Pulmonary Disease (COPD), Hx Sleep Apnea GI History: Reports: Hx Gastroesophageal Reflux Disease Musculoskeletal History: Reports: Hx Arthritis, Hx Orthopedic Injury - left shoulder injury, Other Musculoskeletal History - Chronic Neck Pain Sensory History: Denies: Hx Contacts or Glasses, Hx Hearing Aid Opthamlomology History: Denies: Hx Contacts or Glasses Psychiatric History: Reports: Hx Depression - Surgical History Surgery Procedure, Year, and Place: 3 Cardiac Stents 2004. 1 Cardiac Stent 2006. Septoplasty Turbinate Reduction. Hyoid Suspension. Appendectomy Hx Anesthesia Reactions: No - Immunization History Hx Pertussis Vaccination: No Immunizations Up to Date: Yes Infectious Disease History: No Infectious Disease History: Denies: Traveled Outside the [place] in Last 30 Days - Family History Known Family History: Positive: Hypertension, Diabetes - Social History Occupation: Employed Full-time Lives: With Family Alcohol Use: Daily Hx Substance Use: No Substance Use Type: Reports: None Hx Tobacco Use: Yes Smoking Status (MU): Former Smoker Review of Systems Negative: Fever, Chills, Fatigue, Skin Diaphoresis Negative: Palpitations, Chest Pain Negative: Shortness Of Breath, Cough Genitourinary: Negative Positive: no symptoms reported, see HPI Positive: Arthralgia Skin: Negative Neurological: Negative All Other Systems Reviewed And Are Negative: Yes Physical Exam Triage Information Reviewed: Yes Vital Signs On Initial Exam: Initial Vitals Temp Pulse Resp BP Pulse Ox 98.4 F 73 20 119/81 94 07/08/19 10:43 07/08/19 10:43 07/08/19 10:43 07/08/19 10:43 07/08/19 10:43 Vital Signs Reviewed: Yes Appearance: Positive: Well-Appearing, Well-Nourished Skin: Positive: Warm, Skin Color Reflects Adequate Perfusion Head/Face: Positive: Normal Head/Face Inspection Eyes: Positive: EOMI, SAKINA, Conjunctiva Clear Neck: Positive: Supple, No Lymphadenopathy Respiratory/Lung Sounds: Positive: Clear to Auscultation, Breath Sounds Present Cardiovascular: Positive: RRR, Pulses are Symmetrical in both Upper and Lower Extremities Musculoskeletal: Positive: Normal, Strength/ROM Intact. Negative: Edema Left, Edema Right Neurological: Positive: Sensory/Motor Intact, Alert, Oriented to Person Place, Time, Speech Normal Psychiatric: Positive: Affect/Mood Appropriate Procedures - Sedation Patient Received Moderate/Deep Sedation with Procedure: No Diagnostics - Vital Signs Vital Signs Temp Pulse Resp BP Pulse Ox 07/08/19 10:43 98.4 F 73 20 119/81 94 - Laboratory Lab Statement: Any lab studies that have been ordered have been reviewed, and results considered in the medical decision making process. Lower Extremity Course/Dx - Course Course Of Treatment: This patient is evaluated for right knee pain which is severe in nature. He states he feels a "clicking" sensation as well as severe pain. Patient remains ambulatory without numbness or tingling to the knee or lower extremity otherwise. He does not have follow up with ortho and does not take medications. He is to start PT today. X-ray obtained which was mild osteoarthritis with no other acute osseous injury. Patient will be given Toradol for relief of arthritis symptoms. He will follow up with orthopedic as well as his PCP for further evaluation and the need for PT. - Diagnoses Differential Diagnosis/HQI/PQRI: Positive: Sprain, Strain Provider Diagnoses: Osteoarthritis Discharge ED - Sign-Out/Discharge Documenting (check all that apply): Patient Departure - Discharge Plan Condition: Stable Disposition: HOME Prescriptions: Ketorolac TAB * [Toradol TAB *] 10 mg PO Q6H #16 tab Patient Education Materials: Arthritis (ED) Referrals: Ludivina De Santiago MD [Primary Care Provider] - Carol Marlow MD [Medical Doctor] - Additional Instructions: Toradol four times daily x 4 days for pain Ice and elevation for discomfort Call orthopedic physician for follow up Only do PT if your pain decreases in severity - Billing Disposition and Condition Condition: STABLE Disposition: Home - Attestation Statements Provider Attestation: pt seen by midlevel provider independently, based on their assessment, it was not necessary to present the case to me but I was available for consultation. I did not form a physician-patient relationship with the patient. The chart however, has been reviewed. am signing this note strictly in an administrative capacity.
--- OUTSIDE RECORDS SUMMARY | 2019-07-08 11:19 | XMS REPORT | Continuity of Care Document ---
:1955 External Reference #:[id number] Author Name Ludivina De Santiago M.D. (transmitted by agent of provider Brianda Naik) Address [address] [facility], [place] [address] Care Team Providers Name Role Phone Galen Berger MD - Otolaryngology Care Team Information Inside Horticultural Specialty Grower Ludivina De Santiago MD - Internal Care Team Information Inside Horticultural Specialty Grower Medicine Problems Active Problems Provider Date Hyperlipidemia Jamia Obando MD Onset: 05/09/2010 Coronary arteriosclerosis Jamia Obando MD Onset: 05/09/2010 Mild major depression, single episode Karma Gutierrez M.D. Onset: 2009 Gastroesophageal reflux disease Karam Gutierrez M.D. Onset: 05/09/2010 Benign essential hypertension Demetri Moreira M.D. Onset: 05/13/2011 Depressive disorder Demetri Moreira M.D. Onset: 08/12/2011 Cervical disc disorder Demetri Moreira M.D. Onset: 10/22/2011 Obstructive sleep apnea syndrome Demetri Moreira M.D. Onset: 06/03/2012 Chronic ischemic heart disease Brian Bryant M.D., [facility], Onset: 2013 FASNC Obesity Rasheeda Gonzalez MD Onset: 10/13/2014 Type 2 diabetes mellitus Ludivina De Santiago M.D. Onset: 10/10/2014 Tubular adenoma of colon Ludivina De Santiago M.D. Onset: 04/16/2016 Lumbar radiculopathy Piter Crane M.D. Onset: 06/24/2016 Localized, secondary osteoarthritis of Zaneb Yaseen, MD Onset: 08/22/2016 the shoulder region Localized, primary osteoarthritis of Devin Barreto MD Onset: 12/03/2016 the shoulder region Injury of shoulder region Devin Barreto MD Onset: 12/03/2016 Thoracic aortic ectasia Brian Bryant M.D., [facility], Onset: 09/09/2018 FASNC Social History Type Date Description Comments Sex Unknown Cigarette Use Quit 8 Years Ago ETOH Use Currently consumes a few per day, beer alcohol Tobacco Use Start: Unknown End: Patient is a former started at age 10 Unknown smoker stopped at age 50 Smoked 40 yrs; max 1ppd Recreational Drug Use Sporadically uses Marijuana Smoking Status Reviewed: 06/24/19 Patient is a former started at age 10 smoker stopped at age 50 Smoked 40 yrs; max 1ppd Exercise Type/Frequency Exercises regularly Exercise Type/Frequency Walk every day Allergies, Adverse Reactions, Alerts Active Allergies Reaction Severity Comments Date Niaspan 03/27/2009 Celebrex hot flashes, sweats, tightness 07/20/2009 in chest Shrimp Allergenic Extract 09/09/2018 Medications Active Medications SIG Qnty Indications Ordering Date Provider Shingrix intramuscular x 1 1units Ludivina 06/24/2019 then repeat 4 months Allan De Santiago 50mcg/0.5ML later Suspension Rec Aleve Twice Daily Unknown 04/05/2019 220mg Capsules Metformin HCL once a day 90tabs E11.9 Ludivina 03/11/2019 500mg Allan De Santiago Tablets Epinephrine subcutaneously as 2units T78.02xA Ludivina 09/10/2018 needed for Allan De Santiago 0.3mg/0.3ML anaphylaxis Solution (backordered, Auto-Inject 10/12/18) Freestyle Unistick twice daily and as 100units Ludivina 04/09/2018 II Lancets needed Allan De Santiago [facility] True Metrix Meter as needed 1units Ludivina 11/11/2017 Allan De Santiago Device True Metrix Self test blood sugars 100units Ludivina 11/11/2017 Monitoring Blood fasting and 2 hours Allan De Santiago Glucose Strips after meals 3 times a day Strips Fluoxetine HCL Take One Capsule By 90caps F32.89 [facility] 08/08/2016 10mg Mouth Once Daily Allan De Santiago Capsules Aspirin Ec Low Dose Take One Tablet By 90tabs [facility] 11/10/2014 Mouth Once Daily as Allan De Santiago 81mg Tablets DR Directed Dexilant take 1 capsule by 90caps K21.9 Ludivina 09/22/2014 60mg mouth once daily 1/[address] hour before breakfast Atorvastatin Take One Tablet By 90tabs [facility] 09/22/2014 Calcium Mouth Every Evening Allan De Santiago 80mg Tablets Loratadine Take One Tablet By 90tabs [facility] 05/16/2014 10mg Mouth Once Daily as Allan De Santiago Tablets Needed as Directed Nitrostat as needed for chest 30tabs Brian Ab 01/10/2014 0.4mg pain Allan Bryant, Tablets Sub [facility] [place] Metoprolol Tartrate Take 1/2 Tablet By 60tabs I10 [facility] 05/17/2013 Mouth Two Times Daily Allan De Santiago 25mg Tablets Isosorbide 1 tab by mouth every 90tabs Brian Ab Mononitrate ER day Allan Bryant, [facility] 120mg Tablets ER 24HR Losartan Potassium Take One Tablet By 90tabs Ludivina Mouth Once Daily Allan De Santiago 50mg Tablets History Medications Ventolin HFA Q4H 1units Unknown 04/05/2019 - 06/24/2019 108(90Base) mcg/Act Aerosol Doxycycline Hyclate Twice Daily 14caps Unknown 04/05/2019 - 04/12/2019 100mg Capsules Deltasone Every Day 5tabs Unknown 04/05/2019 - 06/24/2019 20mg Tablets Xylocaine Viscous Q4H 1units Unknown 04/05/2019 - 06/24/2019 2% Solution Cheratussin ac Three Times Daily 60units Unknown 04/05/2019 - 06/24/2019 100-10mg/5ML Syrup Medications Administered in Office Medication SIG Qnty Indications Ordering Provider Date Inj, Regadenoson, 0.1 MG Brian Bryant M.D., 09/09/2016 [facility] Technetium TC 99M Brian Bryant M.D., 09/09/2016 Tetrofosmin, Per Unit Dose FACC, FASNC Up To 40 Millicuries Injection Technetium TC 99M [facility] Schedule 09/04/2016 Tetrofosmin, Per Unit Dose Up To 40 Millicuries Injection Inj, Regadenoson, 0.1 MG Brian Bryant M.D., 03/18/2014 Injection FACC, FASNC Technetium TC 99M Brian Bryant M.D., 03/18/2014 Tetrofosmin, Per Unit Dose FACC, FASNC Up To 40 Millicuries Injection Immunizations CPT Code Status Date Vaccine Reaction Lot # [id number] Given 06/24/2019 Influenza Virus Vaccine, [id number] Quadrivalent ([id number]), Derived From Cell 66234 Given 07/09/2018 Pneumonia Vaccine [id number] 04287 Given 07/09/2018 Influenza Virus Vaccine, [id number] Quadrivalent, Split, Preservative Free 41722 Given 07/08/2017 Influenza Virus Vaccine, given in L [id number] Quadrivalent, Split, deltoid,max. Preservative Free well,site unremarkable,bandaid applied 90889 Given 08/08/2016 Influ Virus Vaccine, [id number] Quadrivalent, Split Virus, [place] [address] Given 08/08/2016 Pneumococcal Conjugate [id number] Vaccine 13 Valent For Intramuscular Use 90106 Given 07/03/2015 Tdap - [id number] Tetanus/Diptheria/Acellular Pertussis 57859 Given 07/03/2015 Influenza Virus Vaccine, [id number] Quadrivalent, Split, Preservative Free Q2037 Given 10/11/2013 Fluvirin Im 3Yrs And Older [id number] Q2038 Given 06/03/2012 Fluzone Vaccine [id number] 76379 Given 06/22/2011 Influenza Virus 3Yrs & Over [id number] 70231 Given 06/26/2010 Pneumonia Vaccine [id number] 68976 Given 06/26/2010 Influenza Virus 3Yrs & Over [id number] 81351 Given 07/05/2009 Influenza Virus Vaccine, [id number] Pandemic Formulation 11925 Given 07/05/2009 Administration Swine Flu Shot Vital Signs Date Vital Result Comment 06/24/2019 11:01am Height 71 inches 5'11" Weight 253.00 lb Heart Rate 65 /min BP Systolic 139 mmHg BP Diastolic 87 mmHg O2 % BldC Oximetry 95 % BMI (Body Mass Index) 35.3 kg/m2 04/08/2019 9:40am Height 71 inches 5'11" Weight 250.00 lb Heart Rate 61 /min BP Systolic Sitting 125 mmHg BP Diastolic Sitting 74 mmHg O2 % BldC Oximetry 96 % BMI (Body Mass Index) 34.9 kg/m2 Results Test Date Facility Test Result H/L Range Note Laboratory test 05/21/2019 [facility] Blue Mussel <0.35 kU/L [address] [place] [address] [phone] Clam Allergen IgE <0.35 kU/L 2 Crab Allergen IgE 0.73 kU/L 3 Lobster Allergen IgE 0.77 kU/L 4 Scallop Allergen IgE <0.35 kU/L 5 Shrimp Allergen IgE 0.91 kU/L 6 Oyster Allergen IgE <0.35 kU/L 7 Lipid Profile 04/08/2019 [facility] Triglycerides 156 mg/dL 8, 9 (Trig/Chol/HDL) [address] [place] [address] [phone] Cholesterol 168 mg/dL 10 HDL Cholesterol 39.6 mg/dL 11 LDL Cholesterol 97 mg/dL 12 Urine Microalbumin 04/08/2019 [facility] Ur Microalbumin < 15.[address] (mg/L) mg/[place] [address] [phone] Urine Creatinine 76.81 mg/dL Urine Microalbumin/Creatinine TNP <31 13 CBC Auto 04/05/2019 [facility] White Blood 5.6 10^3/uL Normal 3.5-10.[address] [place] [address] [phone] Red Blood Count 4.15 10^6/uL Low 4.18-5.48 Hemoglobin 13.6 g/dL Low 14.0-18.0 Hematocrit 39 % Low 42-52 Mean Corpuscular Volume 94 fL Normal 80-94 Mean Corpuscular Hemoglobin 33 pg High 27-31 Mean Corpuscular HGB Conc 35 g/dL Normal 31-36 Red Cell Distribution Width 13 % Normal 10-15 Platelet Count 135 10^3/uL Low 150-450 Mean Platelet Volume 8.6 fL Normal 7.4-10.4 Abs Neutrophils 3.9 10^3/uL Normal 1.5-7.7 Abs Lymphocytes 0.7 10^3/uL Low 1.0-4.8 Abs Monocytes 0.6 10^3/uL Normal 0-0.8 Abs Eosinophils 0.3 10^3/uL Normal 0-0.6 Abs Basophils 0.1 10^3/uL Normal 0-0.2 Abs Nucleated RBC 0.0 10^3/uL Granulocyte % 70.3 % Lymphocyte % 12.9 % Monocyte % 11.3 % Eosinophil % 4.5 % Basophil % 1.0 % Nucleated Red Blood Cells % 0.0 Laboratory test 04/05/2019 [facility] Lactic Acid 1.1 mmol/L Normal 0.5-2.0 14 finding [address] [place] [address] [phone] Comp Metabolic 04/05/2019 [facility] Sodium 137 mmol/L Normal 135-145 [address] [place] [address] [phone] Potassium 4.9 mmol/L Normal 3.5-5.0 Chloride 105 mmol/L Normal 101-111 Co2 Carbon Dioxide 26 mmol/L Normal 22-32 Anion Gap 6 mmol/L Normal 2-11 Glucose 112 mg/dL High 70-100 Blood Urea Nitrogen 18 mg/dL Normal 6-24 Creatinine 1.00 mg/dL Normal 0.67-1.17 BUN/Creatinine Ratio 18.0 Normal 8-20 Calcium 9.4 mg/dL Normal 8.6-10.3 Total Protein 7.0 g/dL Normal 6.4-8.9 Albumin 4.5 g/dL Normal 3.2-5.2 Globulin 2.5 g/dL Normal 2-4 Albumin/Globulin Ratio 1.8 Normal 1-3 Total Bilirubin 0.60 mg/dL Normal 0.2-1.0 Alkaline Phosphatase 56 U/L Normal 34-104 Alt 27 U/L Normal 7-52 Ast 23 U/L Normal 13-39 Egfr Non- 75.2 >60 Egfr 91.0 >60 15 Laboratory test 04/05/2019 [facility] Magnesium 1.7 mg/dL Low 1.9-2.7 finding [address] [place] [address] [phone] Troponin-I (TnI) 0.00 ng/mL <0.04 16 TSH (Thyroid Stim Horm) 1.92 mcIU/mL Normal 0.34-5.60 Laboratory test finding 03/11/2019 [facility] In House Hemoglobin A1c 5.3 5-7 1 Class 0 (Negative <0.35) Test Performed by: [place] [address] Laborer Pipelines: Cristobal Carrizales M.D. Ph.D.; CLIA# [id number] 2 Class 0 (Negative <0.35) Test Performed by: [place] [address] Laborer Pipelines: Cristobal Carrizales M.D. Ph.D.; CLIA# [id number] 3 Class 2 (Positive 0.70-3.49) Test Performed by: [place] [address] Laborer Pipelines: Cristobal Carrizales M.D. Ph.D.; CLIA# [id number] 4 Class 2 (Positive 0.70-3.49) Test Performed by: [place] [address] Laborer Pipelines: Cristobal Carrizales M.D. Ph.D.; CLIA# [id number] 5 Class 0 (Negative <0.35) Test Performed by: [place] [address] Laborer Pipelines: Cristobal Carrizales M.D. Ph.D.; CLIA# [id number] 6 Class 2 (Positive 0.70-3.49) Test Performed by: [place] [address] Laborer Pipelines: Cristobal Carrizales M.D. Ph.D.; CLIA# [id number] 7 Class 0 (Negative <0.35) Test Performed by: [place] [address] Laborer Pipelines: Cristobal Carrizales M.D. Ph.D.; CLIA# [id number] 8 FASTING 10 HOUR 9 Desirable: <150 Borderline High: 150-199 High: 200-499 Very High: >500 10 Desirable: <200 Borderline High: 200-239 High: >239 11 Low: <40 Desirable: 40-60 High: >60 12 Desirable: <100 Near Optimal: 100-129 Borderline High: 130-159 High: 160-189 Very High: >189 13 Unable to calculate due to low microalbumin 14 [facility] Severe Sepsis and Septic Shock Management Bundle Measure requires all lactic acids initially measuring >2.0 mmol/L be repeated. 15 Because ethnic data is not always readily available, this report includes an eGFR for both -Americans and non- Americans. The National Kidney Disease Education Program (NKDEP) does not endorse the use of the MDRD equation for patients that are not between the ages of 18 and 70, are , have extremes of body size, muscle mass, or nutritional status, or are non- or non-. According to the National Kidney Foundation, irrespective of diagnosis, the stage of the disease is based on the level of kidney function: Stage Description GFR(mL/min/1.73 m(2)) 1 Kidney damage with normal or decreased GFR 90 2 Kidney damage with mild decrease in GFR 60-89 3 Moderate decrease in GFR 30-59 4 Severe decrease in GFR 15-29 5 Kidney failure <15 (or dialysis) 16 Troponin-I testing on Plasma Separator Tubes (PST) has a known false positive rate of 0.20-0.40%. All positive troponins reflex immediately to secondary confirmatory testing. Using the [employer] DxI 800 Access Immunoassay systems, the 99th percentile upper reference limit was demonstrated to be < 0.03 ng/mL. Procedures Date Code Description Status 04/28/2019 734483304 Diabetic Retinal Eye Exam Completed 08/28/2017 [id number] Diabetic Retinal Eye Exam Completed 04/15/2016 [id number] Colonoscopy Completed 01/13/2016 [id number] Diabetic Retinal Eye Exam Completed 10/31/2014 [id number] Diabetic Retinal Eye Exam Completed 01/10/2011 [id number] Colonoscopy Completed Medical Devices Description No Information Available Encounters Type Date Location Provider Dx Diagnosis Office Visit 04/08/2019 [facility] Ludivina De Santiago, J40 Bronchitis, not 9:50a Medicine - Kevin Lemus specified as acute or chronic E78.5 Hyperlipidemia, unspecified Office Visit 03/11/2019 10:30a [facility] E11.9 Type 2 diabetes Medicine - Allan De Santiago mellitus without Ccmob complications R21 Rash and other nonspecific skin eruption Assessments Date Code Description Provider 06/24/2019 Z00.00 Encounter for general adult medical Ludivina De Santiago M.D. examination without abnormal findings 06/24/2019 Z23 Encounter for immunization Ludivina De Santiago M.D. 06/24/2019 M79.604 Pain in right leg Ludivina De Santiago M.D. 06/24/2019 L57.0 Actinic keratosis Ludivina De Santiago M.D. 06/24/2019 E11.9 Type 2 diabetes mellitus without Ludviina De Santiago M.D. complications 04/08/2019 J40 Bronchitis, not specified as acute or chronic Ludivina De Santiago M.D. 04/08/2019 E78.5 Hyperlipidemia, unspecified Ludivina De Santiago M.D. 03/11/2019 E11.9 Type 2 diabetes mellitus without Ludivina De Santiago M.D. complications 03/11/2019 R21 Rash and other nonspecific skin eruption Ludivina De Santiago M.D. Plan of Treatment Future Appointment(s):09/13/2019 10:30 am - Ludivina [facility] M.D. at [facility] Ludivina De Santiago M.D.Z00.00 Encounter for general adult medical examination without abnormal findingsComments:use of sun block daily to prevent for skin cancers you received the flu vaccine today, we discussed getting the shingrix kaplsghtwtyS48 Encounter for olaryldvnqfxA39.604 Pain in right legNew Therapy:Physical DlthcjhP95.0 Actinic keratosisReferral: Alistair Freguson MD, JaorcpugayeU48.9 Type 2 diabetes mellitus without complications Functional Status Description No Information Available Mental Status Description No Information Available Referrals Refer to Dr Reason for Referral Status Appt Date Alistair Ferguson MD Sent [address] [place] [phone] Alistair Ferguson MD Closed 03/19/[address] [place] [phone]
--- OUTSIDE RECORDS SUMMARY | 2019-07-08 11:19 | XMS REPORT | Continuity of Care Document ---
:1955 External Reference #:[id number] Author Name BERNADETTE Laura Address [address] [place] [address] Care Team Providers Name Role Phone Ludivina De Santiago M.D. Care Team Information Cardroom Supervisor [phone] Problems Active Problems Provider Date Allergic rhinitis Milla Lemos M.D. Onset: 10/16/2018 Ingestion dermatitis due to food Milla Lemos M.D. Onset: 10/16/2018 Social History Type Date Description Comments Sex Unknown ETOH Use Occasionally consumes alcohol Tobacco Use Start: Unknown End: Patient is a former smoker Unknown Recreational Drug Use Denies Drug Use Allergies, Adverse Reactions, Alerts Active Allergies Reaction Severity Comments Date Tetracycline 10/16/2018 Medications Active Medications SIG Qnty Indications Ordering Provider Date Auvi-Q use as directed. 2unoren Hoang 10/16/2018 0.3mg/0.3ML divya. Allan Lemos Solution Auto-Inject Multi Vitamin Daily once a day Unknown Tablets Aspirin 81 Low Dose 1 per day Unknown 81mg Chewtabs Loratadine take one 10 mg Unknown 10mg tab daily Capsules Losartan Potassium Unknown 50mg Tablets Dexilant Unknown 60mg Capsules DR Isosorbide Unknown Mononitrate ER 120mg Tablets ER 24HR Metoprolol Tartrate Unknown 25mg Tablets Atorvastatin Calcium Unknown 80mg Tablets Metformin HCL Unknown 500mg Tablets Fluoxetine HCL Unknown 10mg Capsules Epinephrine use as directed - Unknown 0.3mg/0.3ML mylan generic Solution Auto-Inject only [facility] [id number] Immunizations CPT Code Status Date Vaccine Lot # [id number] Given Unknown Influenza Vaccine Vital Signs Date Vital Result Comment 05/20/2019 1:28pm Height 72 inches 6'0" Weight 252.00 lb Weight 114.307 kg Respiratory Rate 20 /min Heart Rate 69 /min O2 % BldC Oximetry 96 % BP Systolic 105 mmHg BP Diastolic 68 mmHg BMI (Body Mass Index) 34.2 kg/m2 11/12/2018 1:12pm Height 72 inches 6'0" Weight 256.00 lb Weight 116.122 kg Respiratory Rate 18 /min Heart Rate 72 /min O2 % BldC Oximetry 95 % BP Systolic 114 mmHg BP Diastolic 73 mmHg BMI (Body Mass Index) 34.7 kg/m2 Results Description No Information Available Procedures Description No Information Available Medical Devices Description No Information Available Encounters Type Date Location Provider Dx Diagnosis Office Visit 05/20/2019 [facility] Mcmanus Encounter for 1:40p BERNADETTE immunization L27.2 Dermatitis due to ingested food 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 Continue all medications as prescribed Get the lab work done He is able to eat clams, oysters and scallops. Continue strictavoidance of shrimp, lobster and crab . If accidental ingestion occurs, refer to Emergency Action Plan for treatment. Reviewed EAP, patient is comfortable and understands current plan. Taught and reviewed about the use of an Epi Pen, and patient demonstrated and verbalized understanding. Functional Status Description No Information Available Mental Status Description No Information Available Referrals Description No Information Available
[2019-07-08 12:21] VITALS: BP 135/74
== END 2019-07-08 11:58 | disposition home or self-care (01) ==
LOC: ED 10:38
DX: M17.11 Unilateral primary osteoarthritis, right knee (principal); E11.9 Type 2 diabetes mellitus without complications; I25.10 Atherosclerotic heart disease of native coronary artery without angina pectoris; E78.00 Pure hypercholesterolemia, unspecified; I10 Essential (primary) hypertension; J44.9 Chronic obstructive pulmonary disease, unspecified; K21.9 Gastro-esophageal reflux disease without esophagitis; F32.9 Major depressive disorder, single episode, unspecified; Z95.5 Presence of coronary angioplasty implant and graft; Z90.89 Acquired absence of other organs; Z87.891 Personal history of nicotine dependence; Z88.1 Allergy status to other antibiotic agents; Z88.8 Allergy status to other drugs, medicaments and biological substances
CPT/HCPCS: 96372; 99282; J1885

== ENCOUNTER 2019-09-21 06:11 | Day surgery (SDC) | payer OTHER ==
[~2019-09-21 06:11] MED LIST changes: +Acetaminophen TAB* 325 MG PO PRN; -Buffered Lidocaine 1% SYR 3ML* 3 ML/SYR SYRINGE INTRADERM ONE; -Buffered Lidocaine 1% SYR 3ML* 3 ML/SYR SYRINGE ONE; +Buffered Lidocaine 1% SYRIN* 1 ML/SYRINGE INTRADERM ONE; -Bupivacaine 0.25% EPI 200,000* 30 ML SDV ONE; -Bupivacaine 0.25% SDV* 30 ML ONE; -Dexamethasone IV* 4 MG/ML 1 ML (4 MG) IV SLOW PU ONE; -Dexamethasone IV* 4 MG/ML 1 ML (4 MG) ONE; -EPHEDrine (Pressors)* 50 MG/ML VIAL ONE; -Famotidine IV* 10 MG/ML 2 ML (20 mg) IV ONE; -Famotidine IV* 10 MG/ML 2 ML (20 mg) ONE; -Lidocaine 2% MPF* 2 ML VIAL ONE; -Metoprolol Tartrate IV* 1 MG/ML 5 ML VIAL ONE; -Midazolam* 1 MG/ML 5 ML VIAL (5 MG) ONE; -Ondansetron INJ* 2 MG/ML VIAL ONE; -PROCHLORPERAZINE INJ 5 MG/ML 2 ML VIAL IV PRN; -Phenylephrine IV* 40 MCG/ML 10 ML SYRINGE ONE; -Propofol* 10 MG/ML 20 ML BTL IV PUSH ONE; -Succinylcholine* 20 MG/ML 10 ML VIAL ONE; -ceFAZolin 2 GM PREMIX (*) 2 GM/50 ML BAG IVPB ONE; -fentaNYL* 50 MCG/ML 2 ML VIAL (100 MCG VIAL) IV PRN; -fentaNYL* 50 MCG/ML 2 ML VIAL (100 MCG VIAL) ONE; -oxyCODONE/Acetamin 5/325 MG* TAB PO PRN
[2019-09-21] MEDS ORDERED: Midazolam* 1 MG/ML 2 ML VIAL (2 MG) ONE ×2 (07:25→07:36)
[2019-09-21 08:15] VITALS: BP 140/90
--- NOTE | 2019-09-21 09:04 | OP ---
DATE OF OPERATION: 09/21/19 - [facility] DATE OF : 53 SURGEON: Dr. Christiano Cerna. VEGETABLE INSPECTOR: None. ANESTHESIA: Topical with intravenous sedation. PRE-OP DIAGNOSIS: Cataract, right eye with glaucoma. POST-OP DIAGNOSIS: Cataract, right eye with glaucoma. OPERATIVE PROCEDURE: Phacoemulsification and cataract extraction with posterior chamber intraocular lens implant and eye stent implant, right eye. COMPLICATIONS: None. BLOOD LOSS: None. DESCRIPTION OF PROCEDURE: The patient was brought to the operating room and received a drop of tetracaine to his right eye. The patient was given intravenous sedation. The patient was prepped and draped in the usual sterile fashion for ophthalmic surgery and attention was directed to the right eye where a speculum was placed. A paracentesis was created at the 11 o'clock position and 0.1 cc of 1% preservative- free Lidocaine was injected into the anterior chamber followed by DisCoVisc. The eye was digitally stabilized while a 2.75 mm keratome and was used to create a triplanar clear corneal incision at the 9 o'clock position. A continuous curvilinear capsulorrhexis was created using a cystotome and Utrata forceps. BSS on a cannula was used to hydrodissect the lens from the capsule. Phacoemulsification was performed in a [id number]-[id number] technique to create four fragments which were removed. Residual cortical material was removed with irrigation and aspiration. The capsular bag was polished. DisCoVisc was used to inflate the capsular bag. An [id number] 16.0 Diopter lens was placed into the capsular bag. Supplemental DisCoVisc was used to deepen the anterior chamber and coat the surface of the cornea. The patient's head was rotated away from the surgeon and the microscope was rotated towards the surgeon. A corneal prism was placed on the surface of the eye. An eye stent on its gopherman was introduced into the anterior chamber. Under direct visualization, the eye stent was placed into the nasal trabecular mesh atraumatically. The gopherman and the prism were removed. The patient's head and the microscope were returned to a neutral position. Irrigation and aspiration were performed to remove viscoelastic from the eye. BSS on a cannula was used to hydrate the corneal stoma and seal the wound. At the end of the case, the pupil was round. The lens was centered and stable. The eye stent was in good position. There was no bleeding. The pressure appeared normal and the wound was water tight. The speculum was removed. Topical Maxitrol ointment was placed on the surface of the eye. The eye was closed, patched, and shielded and the patient was sent to the recovery room in stable condition with postop instructions and followup appointment given. [id number]/CPS #: [id number] MIRTHAD
[2019-09-21] MEDS ORDERED: Neomycin/Polymy/Dex OPHTH.OIN* 3.5 GM ONE (10:40)
[2019-09-21] MEDS ORDERED: Phenylephrine OPHTH SOL 2.5%* 2 ML ONE (10:40)
[2019-09-21] MEDS ORDERED: Tetracaine 0.5% OPTH.SOL 4 ML* 1 DROP BTL ONE (10:40)
[2019-09-21] MEDS ORDERED: Tropicamide 1% OPTH.SOL* BTL ONE (10:40)
[2019-09-21] MEDS ORDERED: Cyclopentolate 1% OPTH.SOL* 2 ML BTL ONE (10:40)
[2019-09-21] MEDS ORDERED: Lidocaine 1% MPF ** 5 ML VIAL ONE (10:40)
[2019-09-21] MEDS ORDERED: Ketorolac 0.5% OPHTH (NF) 0.5 % 5 ML BTL ONE (10:40)
== END 2019-09-21 08:12 | disposition home or self-care (01) ==
LOC: OREAST 06:11
PROVIDERS: ATTEND Ophthalmology
DX: H25.041 Posterior subcapsular polar age-related cataract, right eye (principal); H40.1111 Primary open-angle glaucoma, right eye, mild stage; E11.9 Type 2 diabetes mellitus without complications; I77.810 Thoracic aortic ectasia; Z95.5 Presence of coronary angioplasty implant and graft; I10 Essential (primary) hypertension; E78.00 Pure hypercholesterolemia, unspecified; I25.10 Atherosclerotic heart disease of native coronary artery without angina pectoris; G47.33 Obstructive sleep apnea (adult) (pediatric); Z87.891 Personal history of nicotine dependence; K21.9 Gastro-esophageal reflux disease without esophagitis
CPT/HCPCS: A9270-GY; C1783; J2250; V2632

== ENCOUNTER 2019-09-28 07:06 | Day surgery (SDC) | payer OTHER ==
[2019-09-28] MEDS ORDERED: Midazolam* 1 MG/ML 2 ML VIAL (2 MG) ONE ×2 (08:05→08:23)
[2019-09-28 08:53] VITALS: BP 152/77
[2019-09-28] MEDS ORDERED: Triamcinolone Acetonide* 40 MG/ML 1 ML VIAL ONE (11:11)
[2019-09-28] MEDS ORDERED: Bupivacaine 0.25% SDV PF* 10 ML VIAL INJ ONE (11:11)
[2019-09-28] MEDS ORDERED: Neomycin/Polymy/Dex OPHTH.OIN* 3.5 GM ONE (11:12)
[2019-09-28] MEDS ORDERED: Tetracaine 0.5% OPTH.SOL 4 ML* 1 DROP BTL ONE (11:12)
[2019-09-28] MEDS ORDERED: Cyclopentolate 1% OPTH.SOL* 2 ML BTL ONE (11:12)
[2019-09-28] MEDS ORDERED: Tropicamide 1% OPTH.SOL* BTL ONE (11:12)
[2019-09-28] MEDS ORDERED: Phenylephrine OPHTH SOL 2.5%* 2 ML ONE (11:12)
[2019-09-28] MEDS ORDERED: Ketorolac 0.5% OPHTH (NF) 0.5 % 5 ML BTL ONE (11:12)
[2019-09-28] MEDS ORDERED: BSS OPTH.SOL* BTL ONE (11:12)
[2019-09-28] MEDS ORDERED: Lidocaine 1% MPF ** 5 ML VIAL ONE (11:12)
--- NOTE | 2019-09-28 13:13 | OP ---
OPERATIVE REPORT: DATE OF OPERATION: 09/28/19 DATE OF : 53 SURGEON: Christiano Cerna MD ANESTHESIA: Topical with intravenous sedation. PRE-OP DIAGNOSIS: Cataract and glaucoma, left eye. POST-OP DIAGNOSIS: Cataract and glaucoma, left eye. OPERATIVE PROCEDURE: Phacoemulsification and cataract extraction with posterior chamber intraocular lens implant and iStent implant, left eye. COMPLICATIONS: None. OPERATIVE FINDINGS: The patient was brought to the operating room and received small amount of intra venous sedation. A drop of tetracaine was placed in his left eye. The patient was prepped and drape d in the usual sterile fashion for ophthalmic surgery and attention was directed to the left eye wher e a speculum was placed. A paracentesis was created at the 5 o'clock position and 0.1 cc of 1% prese rvative-free lidocaine was injected into the anterior chamber followed by DisCoVisc. The eye was dig itally stabilized while a 2.75 mm keratome was used to create a triplanar clear corneal incision at t he 3 o'clock position. A continuous curvilinear capsulorrhexis was created with a cystotome and Utra ta forceps. BSS on a cannula was used to hydrodissect the lens in the capsule. Phacoemulsification was performed in a [id number] technique to create 4 fragments which were removed. Residual c ortical material was removed with irrigation and aspiration. The capsular bag was polished. DisCoVis c was used to inflate the capsular bag. An AU00T0 16.5-diopter lens was inserted into the capsular b ag. Supplemental DisCoVisc was used to deepen the anterior chamber and coat the surface of the corne a. The patient's head was rotated away from the surgeon and the microscope was rotated towards the s urgeon. A gonioprism was placed on the surface of the eye. An iStent on its can carrier was introduced into the anterior chamber. Under direct visualization, the iStent was placed into the nasal trabecu lar meshwork. The can carrier and the prism were removed. The patient's head and the microscope were re turned to a neutral position. Irrigation and aspiration were performed to remove viscoelastic from t he eye. BSS on a cannula was used to hydrate the corneal stroma and seal the wound. At the end of t he case, the pupil was round. The lens and iStent were stable. The eye pressure appeared normal and the wound was watertight. The speculum was removed. Topical Maxitrol ointment was placed on the hood rface of the eye. The eye was closed, patched, and shielded and the patient was sent to the recovery room in stable condition with postop instructions and followup appointment given. [id number]/[facility] #: [id number]
== END 2019-09-28 09:01 | disposition home or self-care (01) ==
LOC: OREAST 07:06
PROVIDERS: ATTEND Ophthalmology
DX: H25.042 Posterior subcapsular polar age-related cataract, left eye (principal); H40.1121 Primary open-angle glaucoma, left eye, mild stage; I25.10 Atherosclerotic heart disease of native coronary artery without angina pectoris; Z95.5 Presence of coronary angioplasty implant and graft; I10 Essential (primary) hypertension; E78.00 Pure hypercholesterolemia, unspecified; E11.9 Type 2 diabetes mellitus without complications; G47.33 Obstructive sleep apnea (adult) (pediatric); K21.9 Gastro-esophageal reflux disease without esophagitis; E78.5 Hyperlipidemia, unspecified; Z68.39 Body mass index [BMI] 39.0-39.9, adult; Z87.891 Personal history of nicotine dependence; I35.1 Nonrheumatic aortic (valve) insufficiency
CPT/HCPCS: A9270-GY; C1783; J2250; J3301; J3490; V2632

== ENCOUNTER 2023-05-06 06:35 | Inpatient (IN) ==
[2023-05-08 09:18] LABS: ABS Monocytes 0.1 10^3/uL (0.0-1.1); ABS Neutrophils 9.4 10^3/uL (1.5-7.6); ABS Nucleated RBC 0.01 10^3/ul; Eosinophil % 0.1 %; Hematocrit 39.7 % (38-53); Hemoglobin 14.1 g/dL (13.2-16.3); Lymphocyte % 9.5 %; Mean Corpuscular Hemoglobin 31.7 pg (27-33); Mean Corpuscular Hgb Conc 35.6 g/dL (31-36); Mean Corpuscular Volume 89.1 fL (80-97); Mean Platelet Volume 9.3 fL (7.5-11.2); Nucleated Red Blood Cells % 0.1 /100 WBC (0.0-0.4); Platelet Count 190 10^3/uL (150-450); Red Blood Count 4.46 10^6/uL (4.06-5.63); Red Cell Distribution Width 13.6 % (12-17); White Blood Count 10.6 10^3/uL (3.6-10.2)
[2023-05-08] MEDS ORDERED: Naloxone 0.4 mg VIAL 0.4 mg/ml 1 ml VIAL IV PUSH PRN (09:36)
[2023-05-08] MEDS ORDERED: Midazolam 10 mg/10 ml VIAL 1 mg/ml 10 ml VIAL (10 mg) IV SLOW PU ONE (09:36)
[2023-05-08] MEDS ORDERED: Flumazenil 0.5 mg/5 ml 0.1 MG/ML 5 ml VIAL IV PRN (09:36)
[2023-05-08] MEDS ORDERED: fentaNYL 100 mcg/2 ml 50 MCG/ML VIAL IV SLOW PU ONE (09:36)
[2023-05-08 09:39] LABS: Activated Partial Thrombo Time 37.9 seconds (26.0-38.0); INR 1.05 (0.83-1.13)
[2023-05-08 09:45] LABS: Calcium 9.3 mg/dL (8.6-10.3); Potassium 4.4 mmol/L (3.5-5.0)
[2023-05-08 09:50] LABS: Creatinine, Serum 1.14 mg/dL (0.67-1.17); eGFR CKD-EPI 70.1 (>60)
[2023-05-08] MEDS ORDERED: Midazolam 5 mg/5 ml VIAL 1 mg/ml 5 ml VIAL (5 mg) ONE (10:22)
[2023-05-08] MEDS ORDERED: Iohexol 350 (CONTRAST) 200 ML MDV IV ONE (10:23)
[2023-05-08] MEDS ORDERED: Heparin 1,000 UNIT/ML 10 ml (10,000 UNITS) CATHLAB/DIALYSIS ONE (10:23)
[2023-05-08] MEDS ORDERED: Heparin 2 UNITS/ML 1000 mls 2,000 ML IV ONE (10:23)
[2023-05-08] MEDS ORDERED: nitroGLYCERIN DRIP 25,000 MCG/250 ML BTL ONE (10:23)
[2023-05-08] MEDS ORDERED: Lidocaine 1% MPF 5 ML VIAL ONE ×2 (10:23)
[2023-05-08] MEDS ORDERED: fentaNYL 100 mcg/2 ml 50 MCG/ML VIAL ONE (10:23)
[2023-05-08] MEDS ORDERED: niCARdipine 0.1MG/ML IVPREMIX 20 MG/200 ML BAG IV ONE (10:23)
[2023-05-08] MEDS ORDERED: Heparin DRIP 25,000 UNITS BAG 25,000 UNITS/500 ML BAG IV SCH (11:30)
[2023-05-08] MEDS ORDERED: Sulfur Hexaflouride MICROSPHR 25 MG VIAL ONE (12:34)
[2023-05-08 13:07] LABS: ABS Lymphocytes 1.1 10^3/uL (1.0-4.8); ABS Monocytes 0.1 10^3/uL (0.0-1.1); ABS Neutrophils 9.9 10^3/uL (1.5-7.6); ABS Nucleated RBC 0.01 10^3/ul; Hemoglobin 12.6 g/dL (13.2-16.3); Lymphocyte % 9.5 %; Mean Corpuscular Hemoglobin 31.2 pg (27-33); Mean Corpuscular Hgb Conc 34.9 g/dL (31-36); Mean Corpuscular Volume 89.4 fL (80-97); Mean Platelet Volume 9.3 fL (7.5-11.2); Platelet Count 182 10^3/uL (150-450); Red Blood Count 4.03 10^6/uL (4.06-5.63); Red Cell Distribution Width 13.3 % (12-17); White Blood Count 11.1 10^3/uL (3.6-10.2)
[2023-05-08 14:00] LABS: Creatinine, Serum 1.05 mg/dL (0.67-1.17); eGFR CKD-EPI 77.3 (>60)
[2023-05-08 17:17] VITALS: BP 178/98
[2023-05-08] MEDS ORDERED: Heparin 5000 UNITS/ML 1 mL VIAL IV SCH (18:00)
[2023-05-09] MEDS ORDERED: Isosorbide Mononit ER 60mg TAB PO SCH (09:00)
== END 2023-05-08 17:45 | disposition short-term general hospital (02) | DRG 287 ==
LOC: CHICATH 06:35 → ICU 05-08 11:46
PROVIDERS: ADMIT Specialist; ATTEND Specialist